=== PATIENT | male | born 2000 | race African-American/Black ===

== ENCOUNTER 2022-10-04 22:20 | Emergency (ER) | payer OTHER ==
[~2022-10-04] VITALS: Ht 175.3 cm; Wt 73.0 kg
[2022-10-04 22:42] VITALS: O2SAT 99
[2022-10-04] MEDS ORDERED: KETOROLAC 30MG/ML VIAL IM ONE (22:45)
[2022-10-04] MEDS ORDERED: DIAZEPAM 5 MG TABLET PO ONE (22:45)
[2022-10-05] MEDS ORDERED: IBUP-2029 MT (01:40)
[2022-10-05] MEDS ORDERED: METH-653 MT (01:40)
[2022-10-05 02:00] VITALS: BP 120/79; PULSE 80; RESP 15; TEMP 97.9
== END 2022-10-05 02:10 | disposition home or self-care (01) ==
LOC: ER 22:20
DX: S33.5XXA Sprain of ligaments of lumbar spine, initial encounter (principal); W50.2XXA Accidental twist by another person, initial encounter; Y93.89 Activity, other specified; Y92.89 Other specified places as the place of occurrence of the external cause; Y99.8 Other external cause status
CPT/HCPCS: 99283; 72100; 96372; J1885